=== PATIENT | male | born 1980 | race Two or more races ===

== ENCOUNTER 2021-11-02 11:47 | Emergency (ER) | payer MEDICAID ==
[~2021-11-02] VITALS: Ht 177.8 cm; Wt 68.1 kg
[~2021-11-02 11:47] MED LIST: PANT40TA77 PO
[2021-11-02] MEDS ORDERED: RABIES IMMUNE GLOBULIN PF 300 UNIT / 1 ML VIAL. VAX IM ONE (12:45)
[2021-11-02] MEDS ORDERED: DIPHTH,PERTUSS(ACELL),TET TOX 0.5 ML DISP.SYRIN. VAX IM ONE (12:45)
[2021-11-02] MEDS ORDERED: RABIES VIRUS VACC PF 2.5 UNIT / 1 ML VIAL. VAX IM ONE (12:45)
[2021-11-02] MEDS ORDERED: AMOXICILLIN/K CLAV 875/125MG TABLET. PO ONE (13:00)
[2021-11-02] MEDS ORDERED: RABIES IMMUNE GLOBULIN PF 300 UNIT/ML 5ML VIAL VAX IM ONE (13:15)
--- NOTE | 2021-11-02 13:40 | RAD ---
AP, lateral, and oblique views of the right hand were performed. History: Dog bite right hand Comparison: none. No fracture or dislocation is seen. The joint spaces are normal in appearance. No significant soft tissue swelling is seen. No retained foreign body is identified. No subcutaneous gas is seen. Impression: 1. Negative exam of the right hand. Electronically signed by: Ignacio Dukes MD (11/02/2021 1:37 PM) [id number]
[2021-11-02] MEDS ORDERED: AMOX1TAB11 PO (14:10)
[2021-11-02] MEDS ORDERED: BACI28.34 TP (14:10)
[2021-11-02] MEDS ORDERED: IBUP-1007 PO (14:10)
--- NOTE | 2021-11-02 14:11 | PHYS DOC ---
Past Medical History Past Medical History: No Pertinent History Past Surgical History: No Surgical History Smoking Status: Never Smoker Alcohol Use: Occasionally General Adult EDM: Chief Complaint: ANIMAL BITE HPI: HPI: Patient is a 40 year old male presents to the emergency department complaining of dog bite wound to the right hand that happened Monday afternoon, patient does not know the dog or the dog's immunization status, reports he has not seen the dog since the dog bite incident happened. Patient reports he has been cleansing his right hand daily and noticed increased swelling and redness around the dog bite wound sites. Patient denies numbness or tingling to his right hand, denies pain to his right axilla, denies seeing red streaks traveling up his right arm. Denies recent fever or chills at home, denies dizziness head aches syncopal or near syncopal episodes, denies chest pains or shortness of breath, denies chest congestion or nasal congestion. Denies neck pain. Patient reports his last tetanus immunization was greater than 5 years ago. Patient has not taken pain medications for this dog bite wound stating it does not hurt unless he touches it against something. Patient reports he has not contacted [facility] related to this incident. Patient denies other physical complaints or physical concerns. Review of Systems: Review of Systems: 14 body systems of review of systems have been reviewed. See HPI for pertinent positives and negative responses, otherwise all other systems are negative, nonpertinent or noncontributory. Constitutional: Negative except as outlined in HPI above. Skin: Negative except as outlined in HPI above. Eyes: Negative except as outlined in HPI above. HENT: Negative except as outlined in HPI above. Respiratory: Negative except as outlined in HPI above. Cardiovascular: Negative except as outlined in HPI above. GI: Negative except as outlined in HPI above. : Negative except as outlined in HPI above. Musculoskeletal: Negative except as outlined in HPI above. Integument: Negative except as outlined in HPI above. Neurologic: Negative except as outlined in HPI above. Endocrine: Negative except as outlined in HPI above. Lymphatic: Negative except as outlined in HPI above. Psychiatric: Negative except as outlined in HPI above. Heart Score: C/O Chest Pain: No Risk Factors: Risk Factors: DM, Current or recent (<one month) smoker, HTN, HLP, family history of CAD, obesity. Risk Scores: Score 0 - 3: 2.5% MACE over next 6 weeks - Discharge Home Score 4 - 6: 20.3% MACE over next 6 weeks - Admit for Clinical Observation Score 7 - 10: 72.7% MACE over next 6 weeks - Early Invasive Strategies Current Medications: Current Medications Medications (Trade) Dose Ordered Sig/Sandra Start Time Stop Time Status Last Admin Dose Admin Amoxicillin/ Clavulanate Potassium (Augmentin 875/ 125mg) 1 tab 1X ONCE 11/02/21 13:00 11/02/21 13:04 DC 11/02/21 13:32 1 TAB Diphtheria/ Tetanus/Acell Pertussis (Boostrix) 0.5 ml ONCE ONCE 11/02/21 12:45 11/02/21 13:04 DC 11/02/21 13:33 0.5 ML Rabies Immune Globulin (HyperRAB 300 UNIT/ML 5ML VIAL) 4.5 ml ONCE ONCE 11/02/21 13:15 11/02/21 13:16 DC Rabies Immune Globulin (HyperRAB 300 UNIT/ML VIAL) 4.5 ml ONCE ONCE 11/02/21 12:45 11/02/21 12:46 UNV Rabies Vaccine (Imovax Rabies 2.5 Unit / ml) 1 ml ONCE ONCE 11/02/21 12:45 11/02/21 13:04 DC 11/02/21 13:39 1 ML Allergies: Allergies: Allergies Coded Allergies Type Severity Reaction Last Updated Verified No Known Drug Allergies 11/02/21 No Physical Exam: PE: Constitutional: Well developed, well nourished, no acute distress, non-toxic appearance. 40-year-old male in no apparent distress. HENT: Normocephalic, atraumatic. Eyes: Conjunctiva normal, no discharge. Neck: Normal range of motion, no stridor. Cardiovascular: No cyanosis appreciated, distal cap refill less than 2 seconds. Lungs & Thorax: Patient is in no respiratory distress, no audible adventitious lung sounds appreciated. Abdomen: Nontender, no abnormalities noted. Skin: Warm, dry, no erythema, no rash. See extremity note for focused skin examination. Back: No tenderness, no deformities. Extremities: No tenderness, no cyanosis, no clubbing, ROM intact, no edema. Except for right hand, 1 puncture wound along dorsum of hand and 3 puncture wounds along palmar surface of right hand at the thenar eminence area. Scant serous colored drainage from dog bite wounds, no purulent drainage appreciated, mild erythema around puncture wounds of the right hand, no definitive [place] signs of the right thumb or fingers of right hand appreciated. No pain with passive or active range of motion of the right thumb, there is no lymphangitis appreciated, distal cap refill is less than 2 seconds, 2+ radial pulses equal bilaterally. Neurologic: Alert and oriented X 3, normal motor function, normal sensory function, no focal deficits noted. Psychologic: Affect normal, judgement normal, mood normal. Current Patient Data: Vital Signs: Vital Signs Date Time Temp Pulse Resp B/P (MAP) Pulse Ox O2 Delivery O2 Flow Rate FiO2 11/02/21 11:49 98.4 78 16 133/91 (105) 96 Room Air 98.4 EKG: EKG: [] Radiology/Procedures: Radiology/Procedures: REASON: Dog bite right hand PROCEDURE: HAND RIGHT 3V AP, lateral, and oblique views of the right hand were performed. History: Dog bite right hand Comparison: none. No fracture or dislocation is seen. The joint spaces are normal in appearance. No significant soft tissue swelling is seen. No retained foreign body is identified. No subcutaneous gas is seen. Impression: 1. Negative exam of the right hand. Electronically signed by: Ignacio Dukes MD (11/02/2021 1:37 PM) [id number] Course & Med Decision Making: Course & Med Decision Making Pertinent Labs and Imaging studies reviewed. (See chart for details) 40-year-old male, vital signs reviewed, resents emerged from concerning dog bite wound to right hand. Reports incident happened this past Monday. [facility] security has contacted animal control per report. Physical examination is consistent with patient's explanation of events. Will order x- ray to rule out foreign body or underlying bony injury, will treat prophylactically with p.o. Augmentin regimen, will bring tetanus immunization up-to-date with Tdap today in the emergency department, will start rabies prophylaxis today in the emergency department. Cleanse right hand puncture wounds, dressed prior to discharge. There were no definitive signs of flexor or extensor tenosynovitis, there is no lymphangitis that would indicate need for IV antibiotic prophylaxis. Reviewed with patient Augmentin regimen and side effects, tetanus immunization and side effects, rabies vaccine and immunoglobulin injection, discussed mitchell and reviewed with patient need to return on days 3, 7, 14 status post initial immunization. Discussed daily cleansing, application of antibiotic ointment, watch for signs and symptoms of infectious process, strict return to ER precautions and concerns were reviewed. Patient gave verbal understanding of and is amenable to ED discharge planning. Patient hand was cleansed with Betadine solution rinsed with copious amounts of normal saline prior to immunization of rabies immunoglobulin vaccine by myself. Puncture wounds were dressed with bacitracin and bandage by ED nursing staff prior to discharge from the emergency department. Patient right hand remained neurovascular intact during his ER stay. Discussed with the patient all findings and diagnostic testing as well as the need to follow-up with their primary care provider for further evaluation and treatment or return to the ED if any new or worsening symptoms. Strict return precautions were also discussed at length, the patient voiced understanding and agreement with the discharge planning. The patient was nontoxic in appearance, in no apparent distress, and hemodynamically stable at the time of disposition. Dragon Disclaimer: Lin Disclaimer: This electronic medical record was generated, in whole or in part, using a voice recognition dictation system. Departure Departure Impression: Primary Impression: Dog bite of right hand Qualified Codes: S61.451A - Open bite of right hand, initial encounter; W54.0XXA - Bitten by dog, initial encounter Additional Impressions: Rabies, need for prophylactic vaccination against Need for Tdap vaccination Disposition: 01 HOME / SELF CARE / HOMELESS Condition: GOOD Referrals: NO PCP (PCP) Patient Instructions: Animal Bite, Rabies Immune Globulin, human RIG solution for injection, VIS, Rabies - CDC Additional Instructions: Lo vieron hoy en el departamento de emergencias despus de que un bernabe lo mordiera en velasco mano derecha. Velasco vacunacin contra el ttanos se actualiz hoy en el departamento de emergencias con un medicamento llamado Tdap, actualice anuj registros de vacunacin en consecuencia. Debido a que se desconoce la vacuna antirrbica del bernabe que te mordi, te trataron hoy con la vacuna de inmunoglobulina antirrbica y la vacuna Ribovax. Hensley discutimos, debe regresar los parsons 3, 7 y 14 parsons despus de la vacunacin administrada hotorrie. Regrese el 18 de , el 22 de y el 1 a phil departamento de emergencias para recibir dosis adicionales de la vacuna contra la marc. Mantenga limpias y secas las heridas punzantes de la mordedura de bernabe en la mano derecha, lvelas 2 o 3 veces al da con agua y jabn suave y aplique un ungento antibitico y un vendaje hasta que cicatricen. Es muy importante que regrese al departamento de emergencias de inmediato si presenta prdida de movimiento de los dedos o el pulgar de la mano derecha, aumento de la hinchazn, prdida de sensibilidad en la mano o los dedos/pulgar derechos, aumento del dolor que no se reduce con la -Tylenol o Motrin de venta aime. U otras preocupaciones. Hoy se realiz brett radiografa de la mano derecha, no mostr ningn hallazgo preocupante de huesos rotos o infeccin sea o cuerpos extraos debajo de la piel. Usted indic que no tiene un mdico de atencin primaria, se rabago adjuntado brett lista de proveedores de atencin mdica de atencin primaria del linda a velasco documentacin de damaris, elija un proveedor de atencin primaria para establecer atencin mdica. Ivon por visitar nuestro Departamento de Emergencias. Fue un placer atenderlo hoy en el departamento de emergencias y le agradecemos que nos haya confiado velasco atencin. Si surge algn problema adicional, no dude en volver a visitarnos. Reynaldo un seguimiento con velasco proveedor de atencin primaria para que puedan planificar atencin adicional si es necesario y conocer el problema que tuvo. Si los sntomas empeoran, regrese al Departamento de Emergencias. Cualquier sntoma preocupante que comience, geraldo dolor en el pecho, falta de aire, debilidad o entumecimiento en un lado del cuerpo, fiebre damaris o cualquier otro sntoma preocupante, regresa a la myke de emergencias. Nuevamente, regrese al departamento de pacientes ambulatorios de [facility] para recibir ms vacunas el , el y el 2021. You were seen today in the emergency department after a dog bite to your right hand. Your tetanus immunization was brought up to date today in the emergency department with a medication called Tdap, please update your immunization records accordingly. Because the rabies vaccination is unknown of the dog that bit you, you were treated today with the rabies immunoglobulin vaccine and Ribovax vaccine. As we discussed you need to return on days 3, 7, and 14 days after the vaccination given today. Please return on November 05, November 09, and November 16 to this emergency department for additional rabies vaccine dosing. Please keep the dog bite puncture wounds of your right hand clean and dry, wash 2-3 times a day with mild soap and water and apply antibiotic ointment and bandage until healed. It is very important that you come back to the emergency department immediately for loss of movement of your right hand fingers or thumb, increased swelling, loss of sensation to your right hand or fingers/thumb, inc reased pain that is not reduced by [id number] Tylenol or Motrin. Or other concerns. An x-ray was performed today of the right hand, did not show any concerning findings of broken bones or bone infection or foreign bodies remaining underneath the skin. You had indicated you do not have a primary care physician, a list of area primary care health providers has been attached to your discharge paperwork, please choose a primary care provider to establish health care with. Thank you for visiting our Emergency Department. It was a pleasure taking care of you today in the emergency department and we appreciate you trusting us with your care. If any additional problems come up don't hesitate to return to visit us. Please follow up with your primary care provider so they can plan additional care if needed and know about the problem that you had. If symptoms worsen come back to the Emergency Department. Any concerning symptoms that start such as chest pain, shortness of air, weakness or numbness on one side of the body, running high fevers or any other concerning symptoms return to the ER. Again please return to the [facility] outpatient department for further vaccinations on November 05, November 09, and November [id number]. Scripts Bacitracin/Polymyxin B Sulfate (POLYSPORIN TOPICAL OINT) 28.3 Gm Oint...g. 1 BLANCA TP TID for WOUND CARE, #1 EACH Apply to dog bite puncture wounds on right hand after cleansing 3 times a day. Prov: KEN ZIMMERMAN APRN 11/02/21 Ibuprofen (IBUPROFEN) 600 Mg Tablet 600 MG PO PRN Q6HRS PRN for INFLAMMATION, #30 TAB 0 Refills Prov: KEN ZIMMERMAN APRN 11/02/21 Amoxicillin/Potassium Clav (AMOX TR-K CLV 875-125 MG TAB) 1 Each Tablet 1 TAB PO BID for dog bite infection, #20 TAB Prov: KEN ZIMMERMAN APRN 11/02/21 KEN ZIMMERMAN APRN Nov 02, 2021 14:10
[2021-11-02] MEDS ORDERED: BACITRACIN TOPICAL OINT PACKET. TP ONE (14:15)
[2021-11-02 14:49] VITALS: BP 123/85
== END 2021-11-02 14:49 | disposition home or self-care (01) ==
LOC: ER 11:47
DX: S61.451A Open bite of right hand, initial encounter (principal); W54.0XXA Bitten by dog, initial encounter; Y93.89 Activity, other specified; Y92.89 Other specified places as the place of occurrence of the external cause; Y99.8 Other external cause status
CPT/HCPCS: 73130; 90375; 90471; 90472; 90675; 90715; 96372; 99284-25

== ENCOUNTER 2021-11-05 18:51 | Emergency (ER) | payer MEDICAID ==
[~2021-11-05] VITALS: Ht 180.3 cm; Wt 81.0 kg
[~2021-11-05 18:51] MED LIST changes: +AMOX1TAB11 PO; +BACI28.34 TP; +IBUP-1007 PO
[2021-11-05] MEDS ORDERED: RABIES VIRUS VACC PF 2.5 UNIT / 1 ML VIAL. VAX IM ONE (19:30)
--- NOTE | 2021-11-05 19:44 | PHYS DOC ---
Past Medical History Past Medical History: No Pertinent History Past Surgical History: No Surgical History Smoking Status: Never Smoker Alcohol Use: Occasionally General Adult EDM: Chief Complaint: ANIMAL BITE HPI: HPI: Patient is a 40 year old male who presents for rabies vaccine dose #2. Patient was seen on 11/02/2021 (3 days ago) regarding a bite to his right hand from a stray dog. He was scheduled today to have an outpatient vaccine administration, however the clinic was closed by the time he presented. He has no complaints regarding wound healing. Review of Systems: Review of Systems: ROS negative or noncontributory except as mentioned in HPI. Heart Score: C/O Chest Pain: No Current Medications: Current Medications Medications (Trade) Dose Ordered Sig/Sandra Start Time Stop Time Status Last Admin Dose Admin Rabies Vaccine (Imovax Rabies 2.5 Unit / ml) 1 ml ONCE ONCE 11/05/21 19:30 11/05/21 19:32 DC Allergies: Allergies: Allergies Coded Allergies Type Severity Reaction Last Updated Verified No Known Drug Allergies 11/02/21 No Physical Exam: PE: Constitutional: Well developed, well nourished, no acute distress, non-toxic appearance. HENT: Normocephalic, atraumatic, bilateral external ears normal, nose normal. Eyes: EOMI, conjunctiva normal, no discharge. Neck: Normal range of motion, no stridor. Skin: Multiple wounds on the right hand healing well without erythema, disc harge. Skin otherwise warm, dry, no erythema, no rash. Neurologic: Alert and oriented x4, steady and symmetrical upright gait, no focal deficits noted. Current Patient Data: Vital Signs: Vital Signs Date Time Temp Pulse Resp B/P (MAP) Pulse Ox O2 Delivery O2 Flow Rate FiO2 11/05/21 19:05 98.4 75 16 122/77 (92) 97 Room Air 98.4 Course & Med Decision Making: Course & Med Decision Making Pertinent Labs and Imaging studies reviewed. (See chart for details) Lin Disclaimer: Lin Disclaimer: This electronic medical record was generated, in whole or in part, using a voice recognition dictation system. Departure Departure Impression: Primary Impression: Encounter for administration of vaccine Additional Impression: Rabies, need for prophylactic vaccination against Disposition: HOME / SELF CARE / HOMELESS Condition: STABLE Referrals: NO PCP (PCP) Patient Instructions: Rabies Vaccine suspension for injection Additional Instructions: EMERGENCY DEPARTMENT GENERAL DISCHARGE INSTRUCTIONS Thank you for coming to [facility] Emergency Department (ED) today and trusting us with you care. We trust that you had a positive experience in our Emergency Department. If you wish to speak to the department management, you may call the director at . YOUR FOLLOW UP INSTRUCTIONS ARE FOLLOWS: 1. Follow up with your primary care doctor. If you do not have a primary doctor, please ask for a resource list of physicians or clinics that may be able to assist you with follow up care. 2. The emergency provider has interpreted your imaging studies, if any were ordered. The radiology crime scene specialist also reviewed them. If there is a change in the findings, you will be notified in 48 hours when at all possible. 3. If a lab test or culture has been done, your results will be reviewed and you will be notified if you need a change in treatment. 4. Follow instructions verbalized to you and refer to the printouts if needed. ADDITIONAL INSTRUCTIONS AND INFORMATION: 1. Your care today has been supervised by a physician who is specially trained in emergency care. Many problems require more than one evaluation for a complete diagnosis and treatment. We recommend that you schedule your follow up appointment as recommended to ensure complete treatment of you illness or injury. If you are unable to obtain follow up care and continue to have a problem, or if your condition worsens, we recommend that you return to the ED. 2. We are not able to safely determine your condition over the phone nor are we able to give sound medical advice over the phone. For these safety reasons, if you call for medical advice we will ask you to come to the ED for further evaluation. 3. If you have any questions regarding these discharge instructions please call the ED at . SAFETY INFORMATION: In the interest of safety, wellness, and injury prevention; we encourage you to wear your seat belt, if you smoke; quite smoking, and we encourage family to use a protective helmet for bicycling and other sporting events that present an increased risk for head injury. IF YOUR SYMPTOMS WORSEN OR NEW SYMPTOMS DEVELOP, OR YOU HAVE CONCERNS ABOUT YOUR CONDITION; OR IF YOUR CONDITION WORSENS WHILE YOU ARE WAITING FOR YOUR FOLLOW UP APPOINTMENT; EITHER CONTACT YOUR PRIMARY CARE DOCTOR, THE PHYSICIAN WHOSE NAME AND NUMBER YOU WERE GIVEN, OR RETURN TO THE ED IMMEDIATELY. PA GARCIAb 18, 2022 19:44
[2021-11-05 19:56] VITALS: BP 118/68
== END 2021-11-05 20:00 | disposition home or self-care (01) ==
LOC: ER 18:51
DX: S61.451A Open bite of right hand, initial encounter (principal); W54.0XXA Bitten by dog, initial encounter; Y93.89 Activity, other specified; Y92.89 Other specified places as the place of occurrence of the external cause; Y99.8 Other external cause status
CPT/HCPCS: 90471; 90675; 99283-25

== ENCOUNTER → 2021-11-09 | Outpatient (CLI) | payer MEDICAID ==
[~2021-11-09] MED LIST changes: +RABIES VIRUS VACC PF 2.5 UNIT / 1 ML VIAL. VAX IM ONE
[2021-11-09 16:56] VITALS: BP 118/76
== END | disposition home or self-care (01) ==
LOC: LAB 16:19 → OPS 16:19
PROVIDERS: ATTEND Nurse Practitioner Family
DX: S61.451D Open bite of right hand, subsequent encounter (principal); W54.0XXD Bitten by dog, subsequent encounter; Z20.3 Contact with and (suspected) exposure to rabies
CPT/HCPCS: 90471; 90675; 96372